=== PATIENT | female | born 1935 | race Caucasian/White ===

== ENCOUNTER 2017-12-05 13:45 | Outpatient (CLI) | payer OTHER ==
[~2017-12-05 13:45] MED LIST: AVAPRO150 MG; BABY ASPIRIN81 MG; CEFTRIAXONE 1000 MG IV; LEXAPRO5 MG; LOPRESSOR25 MG; METRONIDAZOLE500 MG PO; NORVASC5 MG; VANCOCIN HCL IV
== END 2017-12-05 15:45 | disposition home or self-care (01) ==
LOC: RAD 13:45
DX: M25.511 Pain in right shoulder (principal); M25.531 Pain in right wrist; M25.521 Pain in right elbow; M54.2 Cervicalgia

== ENCOUNTER → 2018-01-12 | Outpatient (CLI) | payer OTHER | END | disposition home or self-care (01) | LOC: TOM 14:16 | DX: R10.9 Unspecified abdominal pain (principal); R10.2 Pelvic and perineal pain ==

== ENCOUNTER 2018-12-01 13:34 | Outpatient (CLI) | payer OTHER | END 2018-12-01 13:38 | disposition home or self-care (01) | LOC: RAD 13:34 | DX: M19.011 Primary osteoarthritis, right shoulder (principal) ==

== ENCOUNTER 2018-12-24 18:35 | Emergency (ER) | payer OTHER ==
[~2018-12-24] VITALS: Ht 149.9 cm; Wt 51.7 kg
[2018-12-24] MEDS ORDERED: AVALIDE 300-121 EACH (19:07)
[2018-12-24] MEDS ORDERED: CIPRO500 MG (19:08)
[2018-12-25] MEDS ORDERED: AMOX1TAB5 PO (09:56)
[2018-12-25] MEDS ORDERED: INTESTINEX680 M1 PO (09:56)
[2018-12-25] MEDS ORDERED: FLAGYL500MG PO (09:56)
== END 2018-12-25 09:57 | disposition home or self-care (01) ==
LOC: ER 18:35
DX: K57.92 Diverticulitis of intestine, part unspecified, without perforation or abscess without bleeding (principal); I10 Essential (primary) hypertension

== ENCOUNTER 2020-03-23 13:50 | Outpatient (CLI) | payer OTHER ==
[~2020-03-23 13:50] MED LIST changes: +AMOX1TAB5 PO; +AVALIDE 300-121 EACH; +CIPRO500 MG; +FLAGYL500MG PO; +INTESTINEX680 M1 PO
== END 2020-03-23 15:33 | disposition home or self-care (01) ==
LOC: TOM 13:50
PROVIDERS: ATTEND Internal Medicine
DX: R10.9 Unspecified abdominal pain (principal); R10.2 Pelvic and perineal pain

== ENCOUNTER → 2020-10-13 | Outpatient (CLI) | payer OTHER | END | disposition home or self-care (01) | LOC: OFIC 805 10:15 | PROVIDERS: ATTEND Otolaryngology Otology & Neurotology | DX: H81.11 Benign paroxysmal vertigo, right ear (principal); H61.23 Impacted cerumen, bilateral ==

== ENCOUNTER 2021-01-01 14:30 | Outpatient (CLI) | payer OTHER | END 2021-01-01 14:35 | disposition home or self-care (01) | LOC: TOM 14:30 | PROVIDERS: ATTEND General Practice | DX: R10.2 Pelvic and perineal pain (principal); R10.84 Generalized abdominal pain ==

== ENCOUNTER 2021-02-12 14:40 | Outpatient (CLI) | payer OTHER | END 2021-02-12 14:49 | disposition home or self-care (01) | LOC: SONOGRAMA 14:40 | PROVIDERS: ATTEND Internal Medicine Nephrology | DX: N18.31 Chronic kidney disease, stage 3a (principal); I12.9 Hypertensive chronic kidney disease with stage 1 through stage 4 chronic kidney disease, or unspecified chronic kidney disease; Q60.0 Renal agenesis, unilateral; N39.0 Urinary tract infection, site not specified; E03.8 Other specified hypothyroidism; I69.30 Unspecified sequelae of cerebral infarction ==

== ENCOUNTER → 2021-10-23 | Outpatient (CLI) | payer OTHER | END | disposition home or self-care (01) | LOC: SONOGRAMA 13:28 | DX: Q61.01 Congenital single renal cyst (principal); E03.8 Other specified hypothyroidism; I69.30 Unspecified sequelae of cerebral infarction; Q60.0 Renal agenesis, unilateral; N39.0 Urinary tract infection, site not specified; N28.89 Other specified disorders of kidney and ureter; I12.9 Hypertensive chronic kidney disease with stage 1 through stage 4 chronic kidney disease, or unspecified chronic kidney disease ==

== ENCOUNTER 2022-01-17 16:28 | Outpatient (CLI) | payer OTHER | END 2022-01-17 16:41 | disposition home or self-care (01) | LOC: TOM 16:28 | PROVIDERS: ATTEND General Practice | DX: R10.84 Generalized abdominal pain (principal) ==

== ENCOUNTER 2022-07-20 09:06 | Outpatient (CLI) | payer OTHER | END 2022-07-20 09:16 | disposition home or self-care (01) | LOC: RAD 09:06 | PROVIDERS: ATTEND Orthopaedic Surgery Sports Medicine | DX: M19.011 Primary osteoarthritis, right shoulder (principal) ==

== ENCOUNTER 2023-12-25 10:59 | Emergency (ER) | payer OTHER ==
[~2023-12-25] VITALS: Ht 157.5 cm; Wt 50.8 kg
[2023-12-25] MEDS ORDERED: TRIAMCINOLONE A15 G1 TP (12:00)
[2023-12-25] MEDS ORDERED: CIPROFLOXACIN500 MG PO (12:00)
[2023-12-25] MEDS ORDERED: 0.9 % SODIUM CHLORIDE 1,000 ML IV SCH (12:30)
[2023-12-25 13:13] LABS: URINE APPEARANCE Turbid; URINE BILIRRUBIN Negative (NEGATIVE); URINE BLOOD Small; URINE COLOR Yellow; URINE GLUCOSE Negative (NEGATIVE); URINE LEUKOCYTE Large; URINE NITRATE Negative; URINE PROTEIN Trace (NEGATIVE); URINE UROBILINOGEN 0.2 E.U./dl
[2023-12-25 13:14] LABS: HEMATOCRIT 36.2 % (36.0-45.00); HEMOGLOBIN 12.7 g/dL (12.0-15.00); MEAN CELL VOLUME 86.6 fL (80.00-100.00); MEAN CORPUSCULAR HEMOGLOBIN 30.3 pg (27.00-32.0); PLATELET COUNT 370 K/uL (150-450); RED BLOOD COUNT 4.18 M/uL (4.00-6.00); RED CELL DISTRIBUTION WIDTH 13.7 % (11.5-14.5)
[2023-12-25 13:17] LABS: URINE BACTERIA > 9821.5 uL (0.0-1933); URINE EPITHELIAL CELLS 48.2 uL (0.0-38.8); URINE RBC 1.5 uL (0.0-20.8); URINE WBC > 5548.3 uL (0.0-23.2)
[2023-12-25 13:35] LABS: CALCIUM 10.5 mg/dL (8.5-10.1); CREATININE SERUM 1.18 mg/dL (0.55-1.02); GFR 43.33; POTASSIUM 4.39 mEq/L (3.5-5.1)
[2023-12-25] MEDS ORDERED: INTESTINEX680 M1 PO (16:48)
[2023-12-25] MEDS ORDERED: DICY20TA PO (16:48)
[2023-12-25] MEDS ORDERED: PEPCID AC20 MG PO (16:48)
[2023-12-25] MEDS ORDERED: CIPRO500 MG PO (16:48)
[2023-12-25] MEDS ORDERED: METRONIDAZOLE500 MG PO (16:48)
== END 2023-12-25 16:53 | disposition home or self-care (01) ==
LOC: ER 11:00
PROVIDERS: Emergency Medicine
DX: R10.9 Unspecified abdominal pain (principal); Z91.041 Radiographic dye allergy status; I10 Essential (primary) hypertension; N39.0 Urinary tract infection, site not specified; K57.92 Diverticulitis of intestine, part unspecified, without perforation or abscess without bleeding

== ENCOUNTER 2025-04-04 14:14 | Emergency (ER) | payer OTHER ==
[~2025-04-04] VITALS: Ht 160 cm; Wt 43.1 kg
[~2025-04-04 14:14] MED LIST changes: +CIPRO500 MG PO; +CIPROFLOXACIN500 MG PO; +DICY20TA PO; +PEPCID AC20 MG PO; +TRIAMCINOLONE A15 G1 TP
[2025-04-04] MEDS ORDERED: 0.9 % SODIUM CHLORIDE 1,000 ML IV ONE (15:00)
[2025-04-04 15:51] LABS: BASO % 0.5 % (0.1-1.2); EOS # 0.16 (0.04-0.54); EOS % 1.4 % (0.7-7.0); LYMPH # 1.91 (1.18-3.74); LYMPH % 17.3 % (19.3-53.1); MEAN PLATELET VOLUME 8.50 fl (9.4-12.4); MONO # 0.54 (0.24-0.82); MONO % 4.9 % (4.7-12.5); NEUT # 8.36 (1.56-6.13); NEUT % 75.6 % (34.0-71.1); RED CELL DISTRIBUTION WIDTH 13.6 % (11.6-14.4)
[2025-04-04 16:12] LABS: INR 1.02
[2025-04-04 16:17] LABS: ALT/SGPT 15.0 U/L (12-78); AST/SGOT 14.0 U/L (15-37); BILIRUBIN TOTAL 0.36 mg/dL (0.3-1.2); BUN CREA RATIO 16.0 (7.0-25.0); CREATININE SERUM 1.4 mg/dL (0.55-1.02); GFR 35.49; GLOBULINA 3.4 G/DL (2.4-3.5); GLUCOSE FASTING 124.0 mg/dL (65-100); OSMOLALITY SERUM 277.0 MOSM/KG (275-295)
[2025-04-04 16:21] LABS: COVID-19 AG NEGATIVE (NEGATIVE)
[2025-04-04 16:59] LABS: URINE APPEARANCE Turbid; URINE BILIRRUBIN Negative (NEGATIVE); URINE BLOOD Small; URINE COLOR Dark Yellow; URINE GLUCOSE Negative (NEGATIVE); URINE KETONE Trace (NEGATIVE); URINE LEUKOCYTE Large; URINE NITRATE Negative; URINE PROTEIN 30 (NEGATIVE); URINE UROBILINOGEN 1.0 E.U./dl
[2025-04-04 17:03] LABS: URINE CAST 18.24 uL (0.0-1.40); URINE EPITHELIAL CELLS 39.9 uL (0.0-38.8); URINE RBC 5.7 uL (0.0-20.8)
[2025-04-04 17:17] LABS: URINE BACTERIA > 9821.5 uL (0.0-1933); URINE WBC > 5548.3 uL (0.0-23.2)
[2025-04-04] MEDS ORDERED: MACROBID 100 M100 MG PO (17:59)
== END 2025-04-04 18:14 | disposition home or self-care (01) ==
LOC: ER
PROVIDERS: General Practice
DX: R15.9 Full incontinence of feces (principal); R53.1 Weakness; R40.20 Unspecified coma; N39.0 Urinary tract infection, site not specified; Z20.822 Contact with and (suspected) exposure to COVID-19; I10 Essential (primary) hypertension; Z91.041 Radiographic dye allergy status
CPT/HCPCS: 36415; 70450; 71045; 93005; 93041; 96365; 96366; 99284; J7030